=== PATIENT | male | born 1985 | race African-American/Black ===

== ENCOUNTER 2021-03-26 20:17 | Emergency (ER) | payer OTHER ==
[2021-03-26 21:07] VITALS: BP 143/83; PULSE 92; TEMP 98.1; BMI 39.3
[2021-03-26] MEDS ORDERED: DEXAMETHASONE LIQUID 0.5 MG/5 ML PO ONE (22:04)
[2021-03-26] MEDS ORDERED: DEXAMETHASONE SOD PHOSPHATE 10 MG/1 ML VIAL ONE (22:09)
== END 2021-03-26 22:40 | disposition home or self-care (01) ==
LOC: JER 20:17
DX: J45.21 Mild intermittent asthma with (acute) exacerbation (principal); J06.9 Acute upper respiratory infection, unspecified; R05.1 Acute cough; R09.81 Nasal congestion
CPT/HCPCS: 71046-TC-FY; 99283-25